=== PATIENT | female | born 1975 | race Caucasian/White ===

== ENCOUNTER 2021-06-08 01:01 | Emergency (ER) | payer OTHER ==
[~2021-06-08] VITALS: Ht 177.8 cm; Wt 113.4 kg
[2021-06-08] MEDS ORDERED: ENDOMETRIN100 MG (01:20)
== END 2021-06-08 04:47 | disposition home or self-care (01) ==
LOC: ER 01:01
DX: O46.91 Antepartum hemorrhage, unspecified, first trimester (principal); Z3A.08 8 weeks gestation of pregnancy

== ENCOUNTER 2021-06-13 06:00 | Day surgery (SDC) | payer OTHER ==
[~2021-06-13 06:00] MED LIST: ENDOMETRIN100 MG
== END 2021-06-13 13:50 | disposition home or self-care (01) ==
LOC: CIR.AMB 06:00
PROVIDERS: ATTEND Specialist
DX: O02.1 Missed abortion (principal); Z88.0 Allergy status to penicillin; I10 Essential (primary) hypertension; G47.33 Obstructive sleep apnea (adult) (pediatric); Z99.89 Dependence on other enabling machines and devices; Z20.822 Contact with and (suspected) exposure to COVID-19